=== PATIENT | female | born 1955 | race Asian ===

== ENCOUNTER 2020-09-07 21:18 | Emergency (ER) | payer OTHER ==
[~2020-09-07] VITALS: Ht 172.7 cm; Wt 97.5 kg
[2020-09-07] MEDS ORDERED: METF500T PO (21:39)
[2020-09-07 22:51] VITALS: BP 138/88; TEMP 98.2
== END 2020-09-07 22:51 | disposition home or self-care (01) ==
LOC: ED 21:18
PROC: 0HCQXZZ Extirpation of Matter from Finger Nail, External Approach (ICD-10-PCS; principal; 2020-09-07)
DX: S60.352A Superficial foreign body of left thumb, initial encounter (principal); W23.0XXA Caught, crushed, jammed, or pinched between moving objects, initial encounter; W45.8XXA Other foreign body or object entering through skin, initial encounter; Y92.89 Other specified places as the place of occurrence of the external cause
CPT/HCPCS: 96372; 99283; J0690; J2270; J7040